=== PATIENT | female | born 1960 | race Caucasian/White ===

== ENCOUNTER → 2016-04-01 | Outpatient (CLI) | payer OTHER ==
[2016-04-01 08:59] LABS: CH 30.9; CHCM 35.9; HCT 44.6 % (34.0-46.0); HDW 3.01; HGB 15.2 gm/dL (11.4-16.0); MCH 29.5 pg (25.0-35.0); MCHC 34.1 g/dL (31.0-37.0); MCV 86.5 fL (80.0-100.0); Mean Platelet Volume 8.4; RBC 5.16 m/uL (3.80-5.40); RDW 12.9 % (11.5-15.5); WBC 7.9 k/uL (3.8-10.6)
[2016-04-01 10:43] LABS: ALT 32 U/L (9-52); AST 20 U/L (14-36); Alkaline Phosphatase 58 U/L (38-126); Anion Gap 13 mmol/L; Blood Urea Nitrogen 11 mg/dL (7-17); Calcium 9.8 mg/dL (8.4-10.2); Carbon Dioxide 23 mmol/L (22-30); Chloride 110 mmol/L (98-107); Glucose 107 mg/dL (74-99); Non-African American GFR(MDRD) >60 (>60 ml/min/1.73 sqM); Potassium 4.9 mmol/L (3.5-5.1); Sodium 146 mmol/L (137-145); Total Bilirubin 0.8 mg/dL (0.2-1.3)
[2016-04-01 11:02] LABS: Prolactin 5.9 ng/mL (3.0-18.6)
[2016-04-01 11:34] LABS: Vitamin B12 305 pg/mL (239-931)
== END | disposition home or self-care (01) ==
LOC: LABWHC1 08:05
PROVIDERS: ATTEND Internal Medicine Endocrinology, Diabetes & Metabolism
DX: R53.83 Other fatigue (principal)
CPT/HCPCS: 36415; 80053; 82533; 82607; 84146; 84439; 84443; 84481; 85027; 86376

== ENCOUNTER → 2016-09-16 | Outpatient (CLI) | payer OTHER ==
--- NOTE | 2016-09-16 10:48 | EST ---
DATE OF SERVICE: 09/16/2016 AGE: 55Y SEX: F HT: 5'0" WT: 126 lbs. Protocol Jose: X Other: Cardiolite Stage: II Dur. of Exercise: 6:30 *Heart Rate Blood Pressure *Rest: 59 Rest: 113/78 * *Max. Achieved: 151 Maximum BP: 190/63 85% PMHR: 139 100% PMHR: 163 *METS: INDICATIONS: Short of breath. MEDICATIONS: The patient was exercised for a total period of 6 minutes and 30 seconds. Peak heart rate of 151 was achieved. Maximum blood pressure of 190/63 mmHg was noted. The patient did not complain of any chest pain during the test. Resting EKG shows normal sinus rhythm with normal NE interval and QRS duration and normal ST-T waves. No ST segment depression suggestive of ischemia is noted. No dysrhythmias are noted. FINAL IMPRESSION: 1. This exercise test is not suggestive of ischemia. 2. Patient's exercise tolerance is below average. 3. Patient did not complain of any anginal pain during the test.
--- NOTE | 2016-09-16 11:18 | NM ---
EXAMINATION TYPE: NM stress cardiolite complete DATE OF EXAM: 09/16/2016 COMPARISON: NONE HISTORY: TECHNIQUE: After the intravenous administration of 11 mCi Tc 99m Sestamibi - Rest images obtained 45 minutes post injection. The patient exercised using a ARVIND protocol and 1 minute prior to peak ex ercise was injected with 27.1 mCi Tc 99m Sestamibi - Stress images obtained 10 minutes post injection . FINDINGS: Targeted heart rate was achieved during performance of the study. Review of stress and rest SPECT carrillo ges demonstrates no distinct perfusion abnormality. Gated analysis shows normal wall motion with an estimated left ventricular ejection fraction of 71 %. IMPRESSION: No scintigraphic evidence for reversible ischemia
--- NOTE | 2016-09-17 10:24 | ECHOF ---
Referral Reason:R07.89 Chest pain R06.02 sob MEASUREMENTS -------- HEIGHT: 152.4 cm WEIGHT: 79.8 kg BP: 143/85 IVSd: 1.3 cm (0.6 - 1.1) LVIDd: 4.0 cm (3.9 - 5.3) LVPWd: 1.2 cm (0.6 - 1.1) IVSs: 1.7 cm LVIDs: 3.1 cm LVPWs: 1.7 cm LAESV Index (A-L): 27.07 ml/m Ao Diam: 3.4 cm (2.0 - 3.7) AV Cusp: 1.9 cm (1.5 - 2.6) LA Diam: 3.4 cm (2.7 - 3.8) MV EXCURSION: 20.174 mm (> 18.000) MV EF SLOPE: 122 mm/s (70 - 150) EPSS: 0.8 cm MV E [place]: 0.68 m/s MV DecT: 328 ms MV A [place]: 0.80 m/s MV E/A Ratio: 0.85 RAP: 5.00 mmHg RVSP: 20.18 mmHg FINDINGS -------- Sinus rhythm. This was a technically difficult study with suboptimal views. There is mild concentric left ventricular hypertrophy. Overall left ventricular systolic function is normal with, an EF between 55 - 60 %. The right ventricle is normal in size and function. Normal LA size by volume 22+/-6 ml/m2. The right atrium is normal in size. 1.5mg of Definity was utilized for enhancement of images Aortic valve is trileaflet and is mildly thickened. There is no evidence of aortic regurgitation. There is no evidence of aortic stenosis. The mitral valve leaflets are mildly thickened. There is trace mitral regurgitation. Trace tricuspid regurgitation present. There is no evidence of pulmonary hypertension. The right ventricular systolic pressure, as measured by Doppler, is 20.18mmHg. The pulmonic valve is normal. The aortic root size is normal. Normal inferior vena cava with normal inspiratory collapse consistent with estimated right atrial pressure of 5 mmHg. The pericardium is normal. There is no pericardial effusion. CONCLUSIONS -------- 1. Sinus rhythm. 2. Trace tricuspid regurgitation present. 3. There is no evidence of pulmonary hypertension. 4. The right ventricular systolic pressure, as measured by Doppler, is 20.18mmHg. 5. The aortic root size is normal. 6. There is no pericardial effusion. 7. This was a technically difficult study with suboptimal views. 8. There is mild concentric left ventricular hypertrophy. 9. Overall left ventricular systolic function is normal with, an EF between 55 - 60 %. 10. Normal LA size by volume 22+/-6 ml/m2. 11. 1.5mg of Definity was utilized for enhancement of images 12. Aortic valve is trileaflet and is mildly thickened. 13. The mitral valve leaflets are mildly thickened. 14. There is trace mitral regurgitation. REINFORCER: Kareem Stone RDCS
== END | disposition home or self-care (01) ==
LOC: RADECHMAIN 08:24
PROVIDERS: ATTEND Family Medicine
DX: I08.1 Rheumatic disorders of both mitral and tricuspid valves (principal)
CPT/HCPCS: 93017; 93306; 78452; A9500; Q9957

== ENCOUNTER → 2023-08-27 | Outpatient (CLI) | payer BC ==
[2023-08-27 13:04] LABS: Basophils # (A) 0.09 X 10*3/uL (0.00-0.10); Eosinophils # (A) 0.21 X 10*3/uL (0.04-0.35); Eosinophils % (A) 2.3 %; HCT 46.2 % (37.2-46.3); HGB 16.4 g/dL (12.0-15.0); Lymphocytes # (A) 3.08 X 10*3/uL (0.90-5.00); Lymphocytes % (A) 33.8 %; MCH 30.3 pg (27.0-32.0); MCHC 35.5 g/dL (32.0-37.0); MCV 85.4 FL (80.0-97.0); Mean Platelet Volume 11.4 FL (9.5-12.2); Monocytes # (A) 0.78 X 10*3/uL (0.20-1.00); Monocytes % (A) 8.6 %; NRBC Per 100 WBC 0 X 10*3/uL (0.00-0.01); Neutrophils # (A) 4.93 X 10*3/uL (1.80-7.70); Platelet Count 485 X 10*3/uL (140-440); RBC 5.41 X 10*6/uL (4.10-5.20); RDW 11.7 % (11.5-14.5); WBC 9.12 X 10*3/uL (4.50-10.00)
[2023-08-27 13:29] LABS: Chol/HDL Ratio 2.49 Ratio; LDL Cholesterol,Calculated 87.8 mg/dL (0.0-131.0); VLDL Calculation 16.16 mg/dL (5.00-40.00)
[2023-08-27 15:19] LABS: ALT 24 U/L (8-44); AST 21 U/L (13-35); Albumin 4.1 g/dL (3.8-4.9); Albumin/Globulin Ratio 1.52 Ratio (1.60-3.17); Alkaline Phosphatase 101 U/L (41-126); BUN/Creat Ratio 21.43 Ratio (12.00-20.00); Calcium 9.9 mg/dL (8.7-10.3); Carbon Dioxide 22.1 mmol/L (21.6-31.8); Chloride 103 mmol/L (96-109); Globulin 2.7 g/dL (1.6-3.3); Glucose 339 mg/dL (70-110); Sodium 138 mmol/L (135-145); Total Bilirubin 0.6 mg/dL (0.3-1.2); Total Protein 6.8 g/dL (6.2-8.2)
== END | disposition home or self-care (01) ==
LOC: LABWHC1 08:34
PROVIDERS: ATTEND Family Medicine
DX: E11.9 Type 2 diabetes mellitus without complications (principal)
CPT/HCPCS: 36415; 80053; 80061; 82306; 83036; 84443; 85025